=== PATIENT | male | born 1970 | race Caucasian/White ===

== ENCOUNTER → 2019-05-27 | Outpatient (CLI) | payer OTHER ==
[~2019-05-27] MED LIST: ACCUNEB SO1.25 MG/1; CIPROFLOXACIN500 M1 PO; COLACE100 MG PO; DILAUDID 2 MG TA2 MG PO; FLOMAX0.4 MG PO; GUAIFEN-CODEINE10 ML PO; IPRAT-ALBUT 0.5-3 ML INH; LEVSIN0.125 MG PO; NEBULIZER MISCELL; NORCO 5-325 TA1 EACH PO; NORVASC 2.5 MG2.5 M1 PO; PERCOCET 5-3251 EACH PO; PERCOCET PO; PHENAZOPYRIDIN200 M2 PO; PROAIR HFA8.5 GM INH; RAYOS5 MG PO; TAMSULOSIN HCL0.4 M1 PO; VENTOLIN HFA 1818 GM INH; ZOFRAN ODT4 MG PO
== END ==
LOC: M.RAD 11:58
DX: R05 Cough (principal)

== ENCOUNTER 2019-05-31 17:15 | Emergency (ER) | payer OTHER ==
[~2019-05-31] VITALS: Ht 177.8 cm; Wt 145.2 kg
[~2019-05-31 17:15] MED LIST changes: -GUAIFEN-CODEINE10 ML PO; -IPRAT-ALBUT 0.5-3 ML INH; -NEBULIZER MISCELL; -NORVASC 2.5 MG2.5 M1 PO; -RAYOS5 MG PO
[2019-05-31] MEDS ORDERED: RAYOS5 MG PO (17:39)
[2019-05-31] MEDS ORDERED: NORVASC 2.5 MG2.5 M1 PO (17:40)
[2019-05-31] MEDS ORDERED: NEBULIZER MISCELL (17:40)
[2019-05-31 18:39] LABS: ABSOLUTE BASOPHILS 0.1 thou/uL (0.0-0.2); ABSOLUTE LYMPHOCYTES 1.8 thou/uL (0.8-5.3); ABSOLUTE NEUTROPHILS 11.5 thou/uL (1.6-8.1); BASOPHILS 0.7 %; HEMATOCRIT 44.6 % (42.0-52.0); HEMOGLOBIN 14.9 gm/dL (14.0-18.0); LYMPHOCYTES 12.7 %; MCH 27.8 pg (26.0-34.0); MCHC 33.3 g/dL (28.0-37.0); MCV 83.5 fL (80.0-100.0); MONOCYTES 7.3 %; MPV 8.2 fl. (7.2-11.1); NUCLEATED RBCS 0 /100WBC; PLATELET COUNT* 355 thou/uL (150-400); POLYS 79.3 %; RBC 5.34 mil/uL (4.50-6.00); RDW-CV 15.1 % (10.5-14.5); WBC 14.4 thou/uL (4.0-11.0)
[2019-05-31 18:48] LABS: CALCIUM 8.5 mg/dL (8.5-10.1); CREATININE 0.9 mg/dL (0.6-1.3); POTASSIUM 3.8 mmol/L (3.5-5.1)
[2019-05-31 18:53] LABS: ALBUMIN 3.5 g/dL (3.4-5.0); TOTAL BILIRUBIN 0.2 mg/dL (<0.1-1.0); TOTAL PROTEIN 8.3 g/dL (6.4-8.2)
[2019-05-31] MEDS ORDERED: IPRAT-ALBUT 0.5-3 ML INH (20:03)
[2019-05-31] MEDS ORDERED: GUAIFEN-CODEINE10 ML PO (20:03)
[2019-05-31 20:27] VITALS: BP 145/101
== END 2019-05-31 20:28 | disposition home or self-care (01) ==
LOC: M.ERS 17:15
PROVIDERS: Nurse Practitioner Family
DX: J20.9 Acute bronchitis, unspecified (principal); J45.909 Unspecified asthma, uncomplicated; Z87.442 Personal history of urinary calculi

== ENCOUNTER 2021-02-17 21:52 | Emergency (ER) | payer BC ==
[~2021-02-17] VITALS: Ht 172.7 cm; Wt 113.4 kg
[~2021-02-17 21:52] MED LIST changes: +GUAIFEN-CODEINE10 ML PO; +IPRAT-ALBUT 0.5-3 ML INH; +NEBULIZER MISCELL; +NORVASC 2.5 MG2.5 M1 PO; +RAYOS5 MG PO
[2021-02-17 22:17] LABS: URINE BILIRUBIN NEGATIVE (Negative); URINE BLOOD 3+ (Negative); URINE CLARITY CLOUDY; URINE COLOR DARK YELLOW; URINE GLUCOSE-RANDOM NEGATIVE (Negative); URINE KETONES NEGATIVE (Negative); URINE LEUKOCYTES NEGATIVE (Negative); URINE NITRITE NEGATIVE (Negative); URINE PROTEIN 1+ (Negative); URINE SPECIFIC GRAVITY >= 1.030 (1.005-1.030); URINE UROBILINOGEN 0.2 E.U./dl (0.2-1.0)
[2021-02-17 22:23] LABS: SQUAMOUS 0-3 Few /LPF (0-3); URINE WBC 0-5 Rare /HPF (0-5)
[2021-02-17 22:24] LABS: BACTERIA 1-9 Few /HPF (None Seen); CASTS None Seen /LPF (None Seen); CRYSTALS None Seen /LPF (None Seen); MUCUS 4-6 Moderate strn/LPF (None Seen); URINE RBC >20 Many /HPF (0-2)
[2021-02-17 22:30] LABS: ABSOLUTE EOSINOPHILS 0.2 thou/uL (0.0-0.7); ABSOLUTE LYMPHOCYTES 3.8 thou/uL (0.8-5.3); ABSOLUTE MONOCYTES 1.2 thou/uL (0.0-1.2); BASOPHILS 0.4 %; EOSINOPHILS 1.9 %; HEMATOCRIT 41.9 % (42.0-52.0); HEMOGLOBIN 13.7 gm/dL (14.0-18.0); LYMPHOCYTES 33.6 %; MCH 27.4 pg (26.0-34.0); MCHC 32.7 g/dL (28.0-37.0); MCV 83.9 fL (80.0-100.0); MONOCYTES 10.7 %; MPV 7.6 fl. (7.2-11.1); NUCLEATED RBCS 0 /100WBC; PLATELET COUNT* 328 thou/uL (150-400); POLYS 53.4 %; RBC 4.99 mil/uL (4.50-6.00); RDW-CV 14.6 % (10.5-14.5); WBC 11.2 thou/uL (4.0-11.0)
[2021-02-17 22:38] LABS: CALCIUM 8.5 mg/dL (8.5-10.1); POTASSIUM 3.3 mmol/L (3.5-5.1)
[2021-02-17 22:42] LABS: ALBUMIN 3.2 g/dL (3.4-5.0); TOTAL BILIRUBIN 0.3 mg/dL (<0.1-1.0); TOTAL PROTEIN 7.5 g/dL (6.4-8.2)
[2021-02-18] MEDS ORDERED: FLOMAX0.4 MG PO (01:19)
[2021-02-18] MEDS ORDERED: ZOFRAN ODT4 MG PO (01:19)
[2021-02-18] MEDS ORDERED: HYDROCODON-ACE1 EAC8 PO (01:19)
[2021-02-18 01:33] VITALS: BP 158/97
== END 2021-02-18 01:33 | disposition home or self-care (01) ==
LOC: M.ERS 21:52
PROVIDERS: Physician Assistant
DX: N13.2 Hydronephrosis with renal and ureteral calculous obstruction (principal); J45.909 Unspecified asthma, uncomplicated; Z87.442 Personal history of urinary calculi; Z98.890 Other specified postprocedural states; Z79.899 Other long term (current) drug therapy